=== PATIENT | male | born 1985 | race African-American/Black ===

== ENCOUNTER 2020-07-11 13:27 | Emergency (ER) | payer OTHER ==
[~2020-07-11] VITALS: Ht 177.8 cm; Wt 84.4 kg
[2020-07-11] MEDS ORDERED: [UNRECOGNIZED DRUG - CODE] IM (14:47)
== END 2020-07-11 14:57 | disposition home or self-care (01) ==
LOC: ER 13:27
DX: Z20.2 Contact with and (suspected) exposure to infections with a predominantly sexual mode of transmission (principal)